=== PATIENT | female | born 1990 | race Caucasian/White ===

== ENCOUNTER 2020-10-18 21:07 | Emergency (ER) | payer OTHER ==
[~2020-10-18] VITALS: Ht 170.2 cm; Wt 101.4 kg
[2020-10-18 21:13] VITALS: TEMP 98.2
[2020-10-18 21:50] LABS: COLLECTION METHOD CLEAN CATCH
[2020-10-18 22:19] LABS: BUDDING YEAST Present /hpf; MUCOUS Present /lpf; PH 6 (5-8); URINE APPEARANCE Hazy; URINE BACTERIA Rare /hpf; URINE BILIRUBIN Negative (NEGATIVE); URINE BLOOD 1+ (NEGATIVE); URINE COLOR Yellow; URINE GLUCOSE Negative (NEGATIVE); URINE KETONE Trace (NEGATIVE); URINE LEUKOCYTE ESTERASE 2+ (NEGATIVE); URINE NITRATE Negative (NEGATIVE); URINE PROTEIN(semi-quant) 2+ (NEGATIVE); URINE RBC 20-50 /hpf; URINE UROBILINOGEN Negative (NEGATIVE); URINE WBC >50 /hpf
[2020-10-18 22:20] LABS: BASO # 0.1 (0.0-0.2); BASO % 0.5 % (0.0-2.0); EOS # 0.2 (0.0-0.7); EOS % 1.2 % (0-4.0); GRAN # 11.7 (1.4-6.5); GRAN % 75.3 % (42.2-75.2); HEMATOCRIT 34.5 % (37.0-47.0); LYMPH # 2.7 (1.2-3.4); LYMPH % 17.5 % (20.0-51.0); MEAN CELL VOLUME 83 fl (80.0-100.0); MEAN CORPUSCULAR HEMOGLOBIN 29 pg (27.0-31.0); MEAN CORPUSCULAR HGB CONC 35 g/dl (33.0-37.0); MEAN PLATELET VOLUME 10.3 fl (7.4-10.4); MONO # 0.6 (0.1-0.6); MONO % 4.1 % (1.7-9.3); PLATELET COUNT 203 K/mm3 (130-400); RED BLOOD COUNT 4.15 M/mm3 (4.10-5.30); REDCELL DISTRIBUTION WIDTH-CV 14.2 % (11.5-14.5)
[2020-10-18 22:31] LABS: ALBUMIN 3.8 gm/dL (3.5-5.0); BILIRUBIN,TOTAL 0.3 mg/dL (0.0-1.0); CALCIUM 8.9 mg/dL (8.4-10.2); CREATININE, serum 0.35 (0.52-1.25); POTASSIUM 3.8 mmol/L (3.4-5.0); TOTAL PROTEIN 7.3 gm/dL (6.4-8.2)
[2020-10-19] MEDS ORDERED: CEFTIN500 MG PO (00:05)
[2020-10-19] MEDS ORDERED: ZOFRAN ODT4 MG PO (00:05)
[2020-10-19 01:07] VITALS: BP 103/66; PULSE 69
== END 2020-10-19 01:10 | disposition home or self-care (01) ==
LOC: COL.ER 21:07
PROVIDERS: Emergency Medicine
DX: O23.02 Infections of kidney in pregnancy, second trimester (principal); N12 Tubulo-interstitial nephritis, not specified as acute or chronic; Z3A.19 19 weeks gestation of pregnancy; Z88.1 Allergy status to other antibiotic agents; Z88.8 Allergy status to other drugs, medicaments and biological substances
CPT/HCPCS: J0696; J2405; J7040

== ENCOUNTER 2021-03-21 02:50 | Emergency (ER) | payer OTHER ==
[~2021-03-21 02:50] MED LIST: CEFTIN500 MG PO; ZOFRAN ODT4 MG PO
== END 2021-03-21 03:23 | disposition left against medical advice (07) ==
LOC: COL.ER 02:50
DX: R69 Illness, unspecified (principal)